=== PATIENT | female | born 2000 | race Caucasian/White ===

== ENCOUNTER 2022-07-07 14:15 | Inpatient (IN) | payer OTHER ==
[~2022-07-07] VITALS: Ht 157.5 cm; Wt 76.8 kg
[2022-07-07 14:29] VITALS: BP 133/80
[2022-07-07] MEDS ORDERED: LACTATED RINGER'S 1000 ML IV STA (14:32)
[2022-07-07] MEDS ORDERED: PENICILLIN G POTASSIUM 5 MU IV 5 MU in D5W MINI-BAG PLUS 100 ML IV STA (14:32)
[2022-07-07] MEDS ORDERED: TRANEXAMIC ACID INJection 1,000 MG in NS 100 ML IV PRN (14:35)
[2022-07-07] MEDS ORDERED: LIDOCAINE 1% MDV 20ML VIAL INFIL PRN (14:35)
[2022-07-07] MEDS ORDERED: OXYTOCIN DRIP 30 UNITS in IV 1 EA IV PRN ×4 (14:35)
[2022-07-07] MEDS ORDERED: METHYLERGONOVINE MALEATE 0.2 MG/ML VIAL (J2210) IM PRN (14:35)
[2022-07-07] MEDS ORDERED: FAMO20TA PO (14:40)
[2022-07-07] MEDS ORDERED: HOME MED LIST COMPLETE! XX SCH (14:45)
[2022-07-07 14:57] LABS: BASO % 0.2 % (0.0-1.0); EOS % 0.2 % (0.0-3.0); HEMATOCRIT 38.5 % (36.0-47.0); HEMOGLOBIN 13.1 g/dl (12.0-15.5); LYMPH # 2.1 10^3/uL (1.5-5.0); MEAN CORPUSCULAR HEMOGLOBIN 29.3 pg (27.0-33.0); MEAN CORPUSCULAR VOLUME 86.1 fl (80.0-96.0); MONO # 0.9 10^3/uL (0.0-0.8); NEUTROPHILS # 9.1 10^3/uL (1.5-8.5); NEUTROPHILS % 75.1 % (36.0-66.0); PLATELET COUNT, AUTOMATED 146 10^3/uL (150-450); RED BLOOD COUNT 4.47 10^6/uL (4.00-5.40); WHITE BLOOD COUNT 12.2 10^3/uL (4.0-10.0)
[2022-07-07] MEDS ORDERED: ACETAMINOPHEN TAB 650MG DOSE (2X325MG) PO PRN (15:35)
[2022-07-07] MEDS ORDERED: IBUPROFEN 800 MG TAB PO PRN (15:35)
[2022-07-07] MEDS ORDERED: DOCUSATE SODIUM 100MG CAPSULE PO PRN (15:35)
[2022-07-07] MEDS ORDERED: DIBUCAINE 1% OINTMENT 30GM TOP PRN (15:35)
[2022-07-07] MEDS ORDERED: IBUPROFEN 600MG TAB PO PRN (15:35)
[2022-07-07] MEDS ORDERED: RHOGAM 300 MCG (1500 IU) INJ (J2790) IM SCH (15:35)
[2022-07-07] MEDS ORDERED: LR 1,000 ML IV SCH (15:45)
[2022-07-07] MEDS: ACETAMINOPHEN 500 MG TAB PO PRN (16:02)
[2022-07-07 17:29] VITALS: BP 112/65
[2022-07-07] MEDS ORDERED: PEN G POT 3,000,000 UNIT/50 ML 3,000,000 UNIT in IV 1 EA IV SCH (19:00)
[2022-07-08] MEDS: ACETAMINOPHEN 500 MG TAB PO PRN ×3 (02:28→21:01)
[2022-07-08 06:00] VITALS: BP 113/72
[2022-07-08] MEDS: PRENATAL VITAMINS CHEWABLE TABLET PO SCH (08:16)
[2022-07-08 16:09] LABS: HIV 1&2 SCREEN CENTAUR NEGATIVE (NEGATIVE)
[2022-07-08 18:00] VITALS: BP 118/59
[2022-07-09 06:00] VITALS: BP 104/58
[2022-07-09] MEDS: PRENATAL VITAMINS CHEWABLE TABLET PO SCH (08:24)
[2022-07-09] MEDS ORDERED: INFLUENZA QUADRIVALENT PF VACCINE 0.5ML SYRINGE IM.IMMUN ONE (09:00)
[2022-07-09] MEDS ORDERED: MEASLES,MUMPS,RUBELLA VACCINE INJ (MMR-II) (90707) SC.IMMUN ONE (09:00)
== END 2022-07-09 10:30 | disposition home or self-care (01) | DRG 807 ==
LOC: M LDO 14:15 → M LDI 14:27 → M OBS 17:22
PROVIDERS: ADMIT Advanced Practice Midwife; ATTEND Advanced Practice Midwife
PROC: 10E0XZZ Delivery of Products of Conception, External Approach (ICD-10-PCS; principal; 2022-07-07)
PROC: 0KQM0ZZ Repair Perineum Muscle, Open Approach (ICD-10-PCS; 2022-07-07)
DX: O48.0 Post-term pregnancy (principal); Z37.0 Single live birth; Z3A.41 41 weeks gestation of pregnancy; O99.824 Streptococcus B carrier state complicating childbirth; O69.81X0 Labor and delivery complicated by cord around neck, without compression, not applicable or unspecified; O70.1 Second degree perineal laceration during delivery